=== PATIENT | male | born 1960 | race African-American/Black ===

== ENCOUNTER 2021-05-31 02:19 | Emergency (ER) | payer OTHER, SELFPAY ==
--- NOTE | ~2021-05-31 | XR_ITS ---
EXAMINATION: XR knee RT min 4V DATE: 05/31/2021 06:14 INDICATION: Right knee injury and pain. TECHNIQUE: 4 views of right knee were obtained. COMPARISON: None. FINDINGS: Bone alignment is normal. No fracture. There is mild tricompartmental osteoarthritis. There is chondrocalcinosis of the menisci. There is a small knee joint effusion. IMPRESSION: 1. Mild right knee osteoarthritis. 2. Small right knee joint effusion. Reviewed, dictated and finalized at location A. [facility]
[2021-05-31 02:22] VITALS: BP 125/83; PULSE 80; RESP 18; TEMP 36.1; O2SAT 97
[2021-05-31 04:28] VITALS: BP 115/84; PULSE 76; RESP 16; TEMP 36.6; O2SAT 96
[2021-05-31 05:56] VITALS: BP 122/87; PULSE 84; RESP 18; O2SAT 100
--- NOTE | 2021-05-31 06:05 | ED.LOWEXIN ---
HPI - Extremity Injury (Lower) General Chief Complaint: Extremity Injury, Lower Stated Complaint: fall, right knee injury Time Seen by Provider: 05/31/21 06:05 Source: patient Mode of arrival: ambulatory Limitations: no limitations History of Present Illness HPI Narrative: Patient is a 61-year-old male complaining of right knee pain after he fell on it 2 days ago. Patient states his pain is an 8 out of 10, worse with palpation and movement. Denies any other pain or injury. Related Data Home Medications Medication Instructions Recorded Confirmed aspirin PO 05/31/21 Allergies Allergy/AdvReac Type Severity Reaction Status Date / Time No Known Allergies Allergy Verified 05/31/21 02:25 Review of Systems Review of Systems: All systems reviewed & are unremarkable except as noted in HPI and below PMFSH Comments Past medical history: None Family history: None Social history: Non-smoker no EtOH or drug use Exam Const: General: no acute distress and alert Orientation/consciousness: patient oriented x3 HENMT: Head: normal to inspection Eyes: Conjunctivae: conjunctivae normal Neck: Neck: normal visual inspection Resp: Effort & Inspection: normal respiratory effort Skin: General skin exam: normal color Neuro: General: patient oriented x3 and moves all extremities Extrem: Other: Mild right knee swelling, no significant effusion, decreased range of motion due to pain, pain on palpation, neurovascular is intact Course Vital Signs Vital signs: Vital Signs Temperature 36.1 C L 05/31/21 02:22 Pulse Rate 80 05/31/21 02:22 Respiratory Rate 18 05/31/21 02:22 Blood Pressure 125/83 05/31/21 02:22 Pulse Oximetry 97 05/31/21 02:22 Temperature 36.6 C 05/31/21 04:28 Pulse Rate 84 05/31/21 05:56 Respiratory Rate 18 05/31/21 05:56 Blood Pressure 122/87 05/31/21 05:56 Pulse Oximetry 100 05/31/21 05:56 Discharge Plan Discharge Clinical Impression: Contusion of knee, right Qualifiers: Encounter type: initial encounter Qualified Code(s): S80.01XA - Contusion of right knee, initial encounter Patient Disposition: Home, Self-Care Condition: Improved Instructions: Knee Sprain (ED) Prescriptions: New cyclobenzaprine 10 mg tablet 10 mg PO TID PRN (Reason: muscle spasm) Qty: 9 RF: 0 naproxen [Naprosyn] 500 mg tablet 500 mg PO BID PRN (Reason: pain) Qty: 8 RF: 0 No Action aspirin 81 mg Tablet PO RF: 0 Follow-up/Referrals: Bryce,Frank Montoya MD [Primary Care Provider] - 06/01/21 Time of Disposition: 06:45
[2021-05-31] MEDS: CYCLOBENZAPRINE HCL 10 MG TABLET PO (06:13)
[2021-05-31] MEDS: KETOROLAC 30 MG/ML VIAL (*BKC) IM (06:15)
[2021-05-31 07:00] VITALS: BP 116/90; PULSE 108; RESP 18; O2SAT 99
== END 2021-05-31 07:00 | disposition home or self-care (01) ==
PROVIDERS: Emergency Provider Emergency Medicine; PCP Internal Medicine
DX: S80.01XA Contusion of right knee, initial encounter (principal); W19.XXXA Unspecified fall, initial encounter
CPT/HCPCS: 73564; 96372; 99283; A9270; J1885